=== PATIENT | female | born 1965 | race African-American/Black ===

== ENCOUNTER 2022-05-26 12:10 | Emergency (ER) | payer BC, MEDICAID ==
[~2022-05-26] VITALS: Ht 167.6 cm; Wt 91.0 kg
[2022-05-26] MEDS ORDERED: HYDROCODONE/ACETAMINOPHEN 5/325MG TABLET PO ONE ×2 (13:00→16:45)
[2022-05-26] MEDS ORDERED: LIDOCAINE 5% PATCH TOP NR (13:30)
[2022-05-26] MEDS ORDERED: LIDO700A15 TP (15:40)
[2022-05-26] MEDS ORDERED: LIDOCAINE 5% PATCH TOP SCH (16:45)
[2022-05-26 16:52] VITALS: BP 139/80
== END 2022-05-26 16:53 | disposition home or self-care (01) ==
LOC: ER 12:10
DX: M25.561 Pain in right knee (principal); Z13.9 Encounter for screening, unspecified; Z88.0 Allergy status to penicillin; Z88.6 Allergy status to analgesic agent; Z88.5 Allergy status to narcotic agent; Z88.9 Allergy status to unspecified drugs, medicaments and biological substances; Z98.890 Other specified postprocedural states; Z86.69 Personal history of other diseases of the nervous system and sense organs
CPT/HCPCS: 73560; 99283